=== PATIENT | female | born 1970 | race Caucasian/White ===

== ENCOUNTER 2017-04-16 15:03 | Emergency (ER) | payer BC ==
[2017-04-16 15:25] VITALS: RESP 16; TEMP 98.4
--- NOTE | 2017-04-16 16:19 | EDPHY ---
H & P Smoking Status: Never smoked Time Seen by Provider: 04/16/17 16:02 HPI/ROS: CHIEF COMPLAINT: Headache, high blood pressure HISTORY OF PRESENT ILLNESS: 47-year-old female presents to the emergency department by private vehicle complaining of headache and elevated blood pressure. The patient has a known history of hypertension. She was taking hydrochlorothiazide she believes 25 mg daily for the last 10 years. She states that she is healthy and exercises that meets right. She states that she started weaning herself off of that medication because she did not think that she needed any more. She was off the medication for about 2 months and then over last few days has had a headache even with exercise. She started taking her blood pressure and noticed that it was elevated. She does have a family history of hypertension both in her mother and her father. She has no associated chest pain. She does not feel short of breath fatigued. No visual changes. No abdominal pain or vomiting. REVIEW OF SYSTEMS: Constitutional: No fever, no chills. Eyes: No double or blurry vision. ENT: No sore throat. Respiratory: No cough, no shortness of breath. Cardiac: No chest pain. Gastrointestinal: No abdominal pain, vomiting or diarrhea. Genitourinary: No dysuria. Musculoskeletal: No neck or back pain. Skin: No rashes. Neurological: headache. (Ginette Hall) Past Medical/Surgical History: Hypertension, AVM in her liver requiring procedure with last procedure 2 years ago at [facility]. (Ginette Hall) Social History: (Ginette Hall) Physical Exam: General Appearance: Alert, no distress. 168/95. Eyes: Pupils equal and round. Extraocular motions are all intact. ENT: Mouth: Mucous membranes moist. Respiratory: No wheezing, rhonchi, or rales, lungs are clear to auscultation. Cardiovascular: Regular rate and rhythm. Gastrointestinal: Abdomen is soft and nontender, no masses, no rebound or guarding, bowel sounds normal. Neurological: Alert and oriented x 3, cranial nerves II through XII grossly intact Skin: Warm and dry, no rashes. Musculoskeletal: Nontender to palpate along the cervical, thoracic or lumbar spine. Neck is supple. Extremities: Full range of motion and no peripheral edema. Psychiatric: Patient is oriented X 3, there is no agitation. (Ginette Hall) Constitutional: Initial Vital Signs Temperature (C) 36.9 C 04/16/17 15:22 Heart Rate 73 04/16/17 15:22 Respiratory Rate 16 04/16/17 15:22 Blood Pressure 164/94 H 04/16/17 15:22 O2 Sat (%) 96 04/16/17 15:22 O2 Delivery Mode Room Air Allergies/Adverse Reactions: aspirin Allergy (Verified 04/16/17 15:21) ciprofloxacin Allergy (Verified 04/16/17 15:21) hydromorphone [From Dilaudid] Allergy (Verified 04/16/17 15:21) levofloxacin [From Levaquin] Allergy (Verified 04/16/17 15:21) luz Allergy (Verified 04/16/17 15:21) metronidazole [From Flagyl] Allergy (Verified 04/16/17 15:21) Home Medications: Medication Instructions Recorded NK [No Known Home Meds] 04/16/17 Medical Decision Making - Diagnostics EKG Interpretation: EKG reveals normal sinus rhythm with no acute ST T wave abnormalities. This is reviewed by Dr. Paul Wilson. See interpretation in trace master. (Ginette Hall) ED Course/Re-evaluation: 47-year-old female presents with concerns about elevated blood pressure and headache. The patient has a long history of hypertension and wean herself off of her hydrochlorothiazide about 2 months ago. She did restart the medication this morning. She is concerned about recurring elevated blood pressure. Laboratory studies are all within normal limits. I did offer CT brain to further evaluate her headaches, however the patient declined. The patient denied obtaining echocardiogram in the emergency department this afternoon. The patient would like to be discharged and will follow up with her primary care provider as well as her breast puller, Dr. Shaina Santoyo. The case was discussed with Dr. Paul Wlison, secondary supervising physician, who did not directly evaluate the patient but agrees with treatment and plan. ( Ginette Hall) I did not see this patient while she was in the emergency department. However her care was discussed with the PA while the patient was in the department. I agree with treatment plan and management (Paul Wilson) Differential Diagnosis: Headache including but not limited to subarachnoid hemorrhage, migraine headache , tension headache and infectious causes such as meningitis, pharyngitis and sinusitis. (Ginette Hall) - Data Points Laboratory Results: Laboratory Results 04/16/17 16:15 04/16/17 16:15 Departure - Departure Disposition: Home, Routine, Self-Care Clinical Impression: Headache Qualifiers: Headache type: unspecified Headache chronicity pattern: acute headache Intractability: not intractable Qualified Code(s): R51 - Headache Hypertension Qualifiers: Hypertension type: unspecified Qualified Code(s): I10 - Essential (primary) hypertension Condition: Good Instructions: Acute Headache (ED), Hypertension (ED) Additional Instructions: Continue your hydrochlorothiazide medication as prescribed. Follow up with your primary care provider this week and Dr. Shaina Santoyo as scheduled. Return to the emergency department if you developed worsening headache especially headache associated with exertional activities, chest pain, difficulty breathing. Referrals: Janice Bo MD [Primary Care Provider] - As per Instructions Shaina Santoyo MD [Medical Doctor] - As per Instructions
--- NOTE | 2017-04-16 16:24 | CPEKG ---
Heart Rate: 68 RR Interval: 882 P-R Interval: 140 QRSD Interval: 98 QT Interval: 408 QTC Interval: 434 P [place]: 14 QRS [place]: 20 T Wave [place]: 26 EKG Severity - NORMAL ECG - EKG Impression: SINUS RHYTHM Electronically Signed By: Paul Wilson 16-Apr-2017 22:34:32
[2017-04-16 16:36] LABS: PLATELET COUNT 247 10^3/uL (150-400)
[2017-04-16 18:31] VITALS: BP 146/92; PULSE 68; O2SAT 96
== END 2017-04-16 18:29 | disposition home or self-care (01) ==
DX: R51 Headache (principal); I10 Essential (primary) hypertension